=== PATIENT | male | born 1995 | race Two or more races ===

== ENCOUNTER 2018-05-13 20:16 | Emergency (ER) | payer SELFPAY ==
[~2018-05-13] VITALS: Ht 172.7 cm; Wt 68.0 kg
[2018-05-13 20:56] LABS: Basophils # (auto) 0.1 uL; Basophils % (auto) 0.6 % (0.0-2.0); Eosinophils # (auto) 0 uL; Eosinophils % (auto) 0.5 % (0.0-7.0); Hematocrit 45.9 % (41.0-53.0); Hemoglobin 15.1 g/dL (13.5-17.5); Lymphocytes # (auto) 2.6 uL; Lymphocytes % (auto) 26.4 % (10.0-50.0); Mean Corpuscular Hemoglobin 33.1 pg (28.0-32.0); Mean Corpuscular Hgb Conc. 32.8 g/dL (32.0-36.0); Monocytes # (auto) 0.7 uL; Neutrophils # (auto) 6.4 uL; Neutrophils % (auto) 65.5 % (37.0-80.0); Nucleated Red Blood Cells % 0.1 %; Platelet Count (auto) 292 10^3/uL (140-450); Red Blood Cells 4.55 10^6/uL (4.5-5.90); Red Cell Distribution Width 13.7 % (11.8-14.3); White Blood Cell 9.8 10^3/uL (4.4-10.8)
[2018-05-13 21:06] LABS: Albumin 4.4 g/dL (3.4-5.0); BUN/Creatinine Ratio 5.6; Calcium 8.3 mg/dL (8.5-10.1)
[2018-05-13 21:09] LABS: Bilirubin, Total 0.4 mg/dL (0.2-1.0); Total Protein 7.8 g/dL (6.4-8.2)
[2018-05-13] MEDS ORDERED: cefTRIAXone 1GM/10ml IVPUSH 10 ML IV ONE (21:30)
[2018-05-13] MEDS ORDERED: ONDANSETRON HCL 4 MG/2 ML VIAL IV ONE (21:30)
[2018-05-13] MEDS ORDERED: TETANUS-DIPTH-ACEL PERTUSSIS 0.5ML SYRG IM ONE (21:30)
[2018-05-13] MEDS ORDERED: MORPHINE SULFATE 4 MG/ML SYR/VIAL IV ONE (21:30)
[2018-05-13 23:15] LABS: INR 0.94 (0.9-1.15); Partial Thromboplastin Time 22.9 sec (23.78-33.04); Prothrombin Time 10.1 sec (9.27-12.13)
[2018-05-13] MEDS ORDERED: POTASSIUM CHL 20 Meq TABLET PO ONE (23:30)
[2018-05-13] MEDS ORDERED: HYDROcodone-ACET 5/325MG TAB PO ONE (23:45)
[2018-05-13 23:51] VITALS: BP 125/75
[2018-05-14] MEDS ORDERED: SUCCINYLCHOLINE CHLORIDE 20 MG/ML 10ML VIAL IV ONE (04:03)
[2018-05-14] MEDS ORDERED: ETOMIDATE (2MG/ML) 20ML VIAL IV ONE (04:03)
== END 2018-05-14 00:42 | disposition home or self-care (01) ==
LOC: ER 20:16
DX: S41.131A Puncture wound without foreign body of right upper arm, initial encounter (principal); W34.00XA Accidental discharge from unspecified firearms or gun, initial encounter; Y93.89 Activity, other specified; Y99.8 Other external cause status; Y92.89 Other specified places as the place of occurrence of the external cause
CPT/HCPCS: 36415; 71045; 73060; 80053; 85025; 85610; 85730; 90471; 90715; 96374; 96375; 99285; J0696; J2270; J2405; J0330

== ENCOUNTER 2018-05-14 10:32 | Emergency (ER) | payer SELFPAY ==
[~2018-05-14] VITALS: Ht 172.7 cm; Wt 68.0 kg
[2018-05-14 10:39] VITALS: BP 140/82
[2018-05-14] MEDS ORDERED: BACITRACIN TOP OINT 1 UD PKG TOP ONE ×2 (11:08→11:15)
[2018-05-14] MEDS ORDERED: HYDROcodone-ACET 10/325MG TAB PO ONE (11:15)
== END 2018-05-14 11:32 | disposition home or self-care (01) ==
LOC: ER 10:32
DX: S41.131D Puncture wound without foreign body of right upper arm, subsequent encounter (principal); X58.XXXD Exposure to other specified factors, subsequent encounter